=== PATIENT | female | born 1960 | race Caucasian/White ===

== ENCOUNTER 2016-09-02 15:28 | Emergency (ER) | payer OTHER ==
[~2016-09-02] VITALS: Ht 167.6 cm; Wt 113.4 kg
[2016-09-02 15:30] VITALS: BP_SYST 159
--- NOTE | 2016-09-02 16:20 | NUR ---
Placed in room [address] recording monitor, blood pressure machine and pulse oximeter. To gown for exam. Side rails up. Report given to BONNIE RAZA
--- NOTE | 2016-09-02 16:25 | NUR ---
ER at bedside examining patient.
--- NOTE | 2016-09-02 16:26 | NUR ---
Pt presents to ER with persistent cough, non-productive. Pt reports smoking 2 cigarettes/day. Afebrile. Breathing is even and unlabored on RA. No acute distress noted.
--- NOTE | 2016-09-02 17:00 | NUR ---
Patient given written and verbal discharge instructions and verbalizes understanding. ER MD discussed with patient the results and treatment provided. Patient in stable condition. ID arm band removed. IV catheter removed intact and dressing applied, no active bleeding. Rx of albuterol, steroid given. Patient educated on pain management and to follow up with PMD. Opportunity for questions provided and answered.
[2016-09-02 17:19] VITALS: BP_SYST 135
== END 2016-09-02 17:19 | disposition home or self-care (01) ==
LOC: SED 15:28
DX: J20.8 Acute bronchitis due to other specified organisms (principal); F17.210 Nicotine dependence, cigarettes, uncomplicated; Z88.0 Allergy status to penicillin; Z71.6 Tobacco abuse counseling
CPT/HCPCS: 71010; 99283